=== PATIENT | male | born 1990 | race Caucasian/White ===

== ENCOUNTER 2017-02-24 06:50 | Emergency (ER) | payer SELFPAY ==
[~2017-02-24] VITALS: Ht 167.6 cm; Wt 70.3 kg
[2017-02-24 06:55] VITALS: BP_SYST 130
[2017-02-24] MEDS ORDERED: NACL 0.9% 1,000 ML IV ONE (07:16)
[2017-02-24 07:28] LABS: BASOPHILS % (AUTO) 0.4 % (0.0-2.0); EOSINOPHILS # (AUTO) 0.1 K/uL (0.0-0.4); HEMATOCRIT 42.6 % (36-54); HEMOGLOBIN 14.1 g/dL (14.0-18.0); LYMPHOCYTES # (AUTO) 1.7 K/uL (1.0-5.5); LYMPHOCYTES % (AUTO) 19.6 % (20.5-51.5); MEAN CORPUSCULAR HEMOGLOBIN 28 pg (27-31); MEAN CORPUSCULAR HGB CONC 33 % (32-36); MEAN CORPUSCULAR VOLUME 85 fL (79.0-98.0); MONOCYTES # (AUTO) 0.7 K/uL (0.0-1.0); NEUTROPHILS # (AUTO) 6.1 K/uL (1.8-7.7); PLATELET COUNT (AUTO) 343 K/uL (130-430); RED CELL DISTRIBUTION WIDTH 12.6 % (9.0-15.0); WHITE BLOOD COUNT (AUTO) 8.6 K/uL (4.8-10.8)
[2017-02-24] MEDS ORDERED: ONDANSETRON HCL 4 MG/2 ML VIAL IVP ONE (07:30)
[2017-02-24] MEDS ORDERED: HYDROmorphone 1 MG INJ. 1 MG/ML AMPUL IM ONE (07:30)
[2017-02-24 07:35] LABS: CALCIUM 8.8 mg/dL (8.4-11.0); CREATININE 0.97 mg/dL (0.55-1.30); POTASSIUM 3.5 mmol/L (3.5-5.1)
[2017-02-24 07:38] LABS: INR 0.9 (0.80-1.20); PROTHROMBIN TIME 10.3 SECS (9.5-12.5)
[2017-02-24 07:39] LABS: ALBUMIN 3.8 g/dL (3.4-4.8); TOTAL BILIRUBIN 0.3 mg/dL (0.0-1.0)
[2017-02-24] MEDS ORDERED: DIPHENHYDRAMINE INJ 50 MG/ML VIAL IVP ONE (08:00)
[2017-02-24] MEDS ORDERED: HALOPERIDOL LACTATE 5 MG/ML VIAL IVP ONE (08:00)
[2017-02-24 14:00] VITALS: BP_SYST 146
== END 2017-02-24 14:00 | disposition home or self-care (01) ==
LOC: SED 06:50
DX: K80.20 Calculus of gallbladder without cholecystitis without obstruction (principal)
CPT/HCPCS: 36415; 74176; 76700; 80053; 82150; 83690; 85025; 85610; 85730; 96361; 96374; 96375; 99285; J1170; J1200; J1630; J2405; J7030

== ENCOUNTER 2021-07-09 05:49 | Emergency (ER) | payer MEDICAID ==
[~2021-07-09] VITALS: Ht 165.1 cm; Wt 74.8 kg
[2021-07-09 05:50] VITALS: BP_SYST 111
[2021-07-09] MEDS ORDERED: NACL 0.9% 1,000 ML IV ONE (06:30)
[2021-07-09] MEDS ORDERED: KETOROLAC TROMETHAMINE 30 MG VIAL IVP ONE (06:30)
[2021-07-09 07:13] LABS: BASOPHILS % (AUTO) 0.2 % (0.0-2.0); EOSINOPHILS % (AUTO) 0.1 % (0.0-4.0); HEMATOCRIT 45.4 % (36-54); HEMOGLOBIN 15.3 g/dL (14.0-18.0); LYMPHOCYTES # (AUTO) 0.4 K/uL (1.0-5.5); LYMPHOCYTES % (AUTO) 3.3 % (20.5-51.5); MEAN CORPUSCULAR HEMOGLOBIN 29 pg (27-31); MEAN CORPUSCULAR HGB CONC 34 % (32-36); MEAN CORPUSCULAR VOLUME 85 fL (79.0-98.0); MONOCYTES # (AUTO) 0.7 K/uL (0.0-1.0); NEUTROPHILS # (AUTO) 12.1 K/uL (1.8-7.7); NEUTROPHILS % (AUTO) 91.4 % (40.0-70.0); PLATELET COUNT (AUTO) 279 K/uL (130-430); RED BLOOD CELL COUNT(AUTO) 5.36 MIL/uL (4.2-6.2); RED CELL DISTRIBUTION WIDTH 13.2 % (9.0-15.0); WHITE BLOOD COUNT (AUTO) 13.2 K/uL (4.8-10.8)
[2021-07-09 07:16] LABS: CALCIUM 8.1 mg/dL (8.4-11.0); CREATININE 0.72 mg/dL (0.55-1.30); POTASSIUM 3.2 mmol/L (3.5-5.1)
[2021-07-09 07:22] LABS: ALBUMIN 3.6 g/dL (3.4-4.8); TOTAL BILIRUBIN 0.7 mg/dL (0.0-1.0)
[2021-07-09] MEDS ORDERED: ONDA-8 TL (07:49)
[2021-07-09] MEDS ORDERED: TRAM50TA PO (07:49)
[2021-07-09 08:46] VITALS: BP_SYST 123
== END 2021-07-09 08:43 | disposition home or self-care (01) ==
LOC: SED 05:49
DX: K80.50 Calculus of bile duct without cholangitis or cholecystitis without obstruction (principal); Z79.899 Other long term (current) drug therapy
CPT/HCPCS: 36415; 80053; 83690; 85025; 96361; 96374; 99283; J1885; J7030

== ENCOUNTER 2021-07-22 15:01 | Emergency (ER) | payer MEDICAID ==
[~2021-07-22] VITALS: Ht 165.1 cm; Wt 63.5 kg
[~2021-07-22 15:01] MED LIST: ONDA-8 TL; TRAM50TA PO
[2021-07-22 15:20] VITALS: BP_SYST 134
[2021-07-22] MEDS ORDERED: KETOROLAC TROMETHAMINE 60 MG/2 ML VIAL IM ONE (16:00)
[2021-07-22] MEDS ORDERED: ONDANSETRON 4 MG ODT TAB PO ONE (16:00)
[2021-07-22 16:19] LABS: BASOPHILS # (AUTO) 0.1 K/uL (0.0-0.2); BASOPHILS % (AUTO) 1.2 % (0.0-2.0); EOSINOPHILS # (AUTO) 0.1 K/uL (0.0-0.4); EOSINOPHILS % (AUTO) 0.8 % (0.0-4.0); HEMOGLOBIN 13.9 g/dL (14.0-18.0); LYMPHOCYTES # (AUTO) 1.4 K/uL (1.0-5.5); LYMPHOCYTES % (AUTO) 14.8 % (20.5-51.5); MEAN CORPUSCULAR HEMOGLOBIN 28 pg (27-31); MEAN CORPUSCULAR HGB CONC 33 % (32-36); MEAN CORPUSCULAR VOLUME 85 fL (79.0-98.0); MONOCYTES # (AUTO) 0.6 K/uL (0.0-1.0); MONOCYTES % (AUTO) 6.6 % (1.7-9.3); NEUTROPHILS # (AUTO) 7.3 K/uL (1.8-7.7); NEUTROPHILS % (AUTO) 76.6 % (40.0-70.0); PLATELET COUNT (AUTO) 379 K/uL (130-430); RED BLOOD CELL COUNT(AUTO) 4.94 MIL/uL (4.2-6.2); RED CELL DISTRIBUTION WIDTH 13.5 % (9.0-15.0); WHITE BLOOD COUNT (AUTO) 9.5 K/uL (4.8-10.8)
[2021-07-22 16:32] LABS: CREATININE 0.85 mg/dL (0.55-1.30); POTASSIUM 3.6 mmol/L (3.5-5.1)
[2021-07-22 16:36] LABS: ALBUMIN 3.7 g/dL (3.4-4.8); TOTAL BILIRUBIN 0.4 mg/dL (0.0-1.0)
[2021-07-22 19:13] LABS: BILIRUBIN,URINE NEGATIVE (NEGATIVE); BLOOD, URINE NEGATIVE (NEGATIVE); CLARITY/URINE CLEAR (CLEAR); COLOR,URINE ORANGE (YELLOW); GLUCOSE,URINE NEGATIVE (NEGATIVE); KETONES,URINE NEGATIVE (NEGATIVE); LEUKOCYTE ESTERASE ,URINE NEGATIVE (NEGATIVE); NITRITE, URINE NEGATIVE (NEGATIVE); PH,URINE 6.5 (5.0-8.0); PROTEIN URINE NEGATIVE (NEGATIVE); UROBILINOGEN,URINE 0.2 (0.2-1.0)
[2021-07-22 19:21] LABS: BACTERIA,URINE FEW /HPF (None Seen); MUCUS,URINE 2+ /LPF (None Seen); RBC,URINE NONE SEEN /HPF (0-3); WBC,URINE 0-3 /HPF (0-3)
== END 2021-07-22 19:55 | disposition home or self-care (01) ==
LOC: SED 15:01
DX: R10.9 Unspecified abdominal pain (principal); Z79.899 Other long term (current) drug therapy
CPT/HCPCS: 36415; 76770; 80053; 81000; 83690; 85025; 96372; 99284; J1885; Q0162

== ENCOUNTER 2021-07-26 02:51 | Emergency (ER) | payer MEDICAID ==
[~2021-07-26] VITALS: Ht 172.7 cm; Wt 63.5 kg
[2021-07-26 03:01] VITALS: BP_SYST 124
--- NOTE | 2021-07-26 03:05 | NUR ---
Patient triaged and placed in er hallway. VSS and patient appears in no acute distress at this time. Accompanied by bls, awaiting available bed, and MD notified of need for MSE.
--- NOTE | 2021-07-26 04:00 | NUR ---
Dr Santos went to [facility] to examined the pt.Per Dr Santos pt dont want be examined in the [facility].
[2021-07-26 07:00] VITALS: BP_SYST 122
--- NOTE | 2021-07-26 07:00 | NUR ---
Report given to Ina BLANK
[2021-07-26 07:01] LABS: BASOPHILS # (AUTO) 0.2 K/uL (0.0-0.2); BASOPHILS % (AUTO) 0.9 % (0.0-2.0); EOSINOPHILS # (AUTO) 0.1 K/uL (0.0-0.4); EOSINOPHILS % (AUTO) 0.3 % (0.0-4.0); HEMATOCRIT 41.7 % (36-54); LYMPHOCYTES # (AUTO) 1.3 K/uL (1.0-5.5); MEAN CORPUSCULAR HEMOGLOBIN 29 pg (27-31); MEAN CORPUSCULAR HGB CONC 34 % (32-36); MEAN CORPUSCULAR VOLUME 85 fL (79.0-98.0); MONOCYTES # (AUTO) 0.9 K/uL (0.0-1.0); MONOCYTES % (AUTO) 5.2 % (1.7-9.3); NEUTROPHILS # (AUTO) 14.3 K/uL (1.8-7.7); NEUTROPHILS % (AUTO) 85.6 % (40.0-70.0); PLATELET COUNT (AUTO) 357 K/uL (130-430); RED CELL DISTRIBUTION WIDTH 13.6 % (9.0-15.0); WHITE BLOOD COUNT (AUTO) 16.7 K/uL (4.8-10.8)
[2021-07-26 07:23] LABS: CALCIUM 7.6 mg/dL (8.4-11.0); CREATININE 0.77 mg/dL (0.55-1.30); POTASSIUM 3.8 mmol/L (3.5-5.1)
[2021-07-26 07:29] LABS: ALBUMIN 3.5 g/dL (3.4-4.8); TOTAL BILIRUBIN 0.3 mg/dL (0.0-1.0)
--- NOTE | 2021-07-26 08:21 | NUR ---
PT SLEEPING QUIETLY IN WAITING ROOM SINCE I ARRIVED AT 0700, PT REFUSED TO GIVE A URINE SPECIMEN. PT WAS APPROACHED TO BE DISCHARGED AND GOT AGGRESSIVE WITH ME, SCREAMING AND YELLING. SECURITY IN WAITING ROOM. PT ESCORTED OUT OF HOSPITAL.
== END 2021-07-26 08:23 | disposition home or self-care (01) ==
LOC: SED 02:51
DX: R10.9 Unspecified abdominal pain (principal); Z76.5 Malingerer [conscious simulation]
CPT/HCPCS: 36415; 80053; 85025; 99283

== ENCOUNTER 2021-09-09 05:08 | Inpatient (IN) | payer MEDICAID ==
[~2021-09-09] VITALS: Ht 165.1 cm; Wt 66.4 kg
[2021-09-09 05:14] VITALS: BP_SYST 124
[2021-09-09] MEDS ORDERED: ONDANSETRON HCL 4 MG/2 ML VIAL ONE (05:26)
[2021-09-09] MEDS ORDERED: DIPHENHYDRAMINE INJ 50 MG/ML VIAL IVP ONE (05:30)
[2021-09-09] MEDS ORDERED: NACL 0.9% 1,000 ML IV ONE (05:30)
[2021-09-09] MEDS ORDERED: ONDANSETRON HCL 4 MG/2 ML VIAL IVP ONE (05:30)
[2021-09-09] MEDS ORDERED: HALOPERIDOL LACTATE 5 MG/ML VIAL IM ONE (05:30)
[2021-09-09 06:22] LABS: HEMATOCRIT 54.8 % (36-54); HEMOGLOBIN 18.4 g/dL (14.0-18.0); MEAN CORPUSCULAR HEMOGLOBIN 28 pg (27-31); MEAN CORPUSCULAR HGB CONC 34 % (32-36); MEAN CORPUSCULAR VOLUME 85 fL (79.0-98.0); PLATELET COUNT (AUTO) 402 K/uL (130-430); RED BLOOD CELL COUNT(AUTO) 6.48 MIL/uL (4.2-6.2); RED CELL DISTRIBUTION WIDTH 13.3 % (9.0-15.0); WHITE BLOOD COUNT (AUTO) 25.3 K/uL (4.8-10.8)
[2021-09-09 06:25] LABS: ANION GAP 14 (5-15); CALCIUM 10.2 mg/dL (8.4-11.0); CHLORIDE 100 mmol/L (98-107); CREATININE 1.16 mg/dL (0.55-1.30); GLUCOSE 109 mg/dL (70-99); POTASSIUM 3.1 mmol/L (3.5-5.1); SODIUM SERUM 138 mmol/L (136-145); UREA NITROGEN, BLOOD 16 mg/dL (8-21)
[2021-09-09 06:30] LABS: ALANINE AMINOTRANSFERASE 45 U/L (12-78); ASPARTATE AMINOTRANSFERASE 21 U/L (10-37); TOTAL BILIRUBIN 0.8 mg/dL (0.0-1.0)
[2021-09-09 06:34] LABS: ALCOHOL, BLOOD < 3 mg/dL (<10); GFR AFRICAN AMERICAN 96 mL/min (>90)
[2021-09-09] MEDS ORDERED: POTASSIUM CHLORIDE 20 MEQ TAB.PRT.SR PO ONE (07:15)
[2021-09-09] MEDS ORDERED: NACL 0.9% 2,000 ML IV ONE (07:15)
[2021-09-09 07:21] LABS: BAND % (MANUAL) 10 % (0-6); BASOPHILS % (MANUAL) 0 % (0-2); EOSINOPHILS % (MANUAL) 0 % (0-7); LYMPHOCYTES % (MANUAL) 6 % (20-46); MONOCYTES % (MANUAL) 5 % (0-11)
[2021-09-09] MEDS ORDERED: D5/0.45 NS 1,000 ML IV SCH (09:00)
[2021-09-09] MEDS ORDERED: ONDANSETRON HCL 4 MG/2 ML VIAL IVP PRN (09:00)
[2021-09-09 10:05] VITALS: BP_SYST 101
[2021-09-09 12:00] VITALS: BP_SYST 108
== END 2021-09-09 15:57 | disposition left against medical advice (07) | DRG 720 ==
LOC: SED 05:08 → SMU 08:50
PROVIDERS: ADMIT Family Medicine; ATTEND Family Medicine
DX: A41.9 Sepsis, unspecified organism (principal); D72.825 Bandemia; R11.2 Nausea with vomiting, unspecified; Z20.822 Contact with and (suspected) exposure to COVID-19; F12.20 Cannabis dependence, uncomplicated; Z79.899 Other long term (current) drug therapy; Z87.442 Personal history of urinary calculi
CPT/HCPCS: 36415; 76376; 80053; 83605; 83690; 85007; 85027; 87040; 96361; 96372; 96374; 96375; 99285; G0482; J1200; J1630; J2405

== ENCOUNTER 2021-10-31 05:52 | Emergency (ER) | payer MEDICAID ==
[~2021-10-31] VITALS: Ht 165.1 cm; Wt 63.5 kg
--- NOTE | 2021-10-31 07:28 | NUR ---
Patient to ER bed 6 to gown for evaluation. Side rails up. Report given to SHIVANI BLANK.
[2021-10-31 07:29] VITALS: BP_SYST 130
[2021-10-31 07:36] LABS: BILIRUBIN,URINE NEGATIVE (NEGATIVE); BLOOD, URINE NEGATIVE (NEGATIVE); CLARITY/URINE CLEAR (CLEAR); COLOR,URINE YELLOW (YELLOW); GLUCOSE,URINE NEGATIVE (NEGATIVE); KETONES,URINE NEGATIVE (NEGATIVE); LEUKOCYTE ESTERASE ,URINE NEGATIVE (NEGATIVE); NITRITE, URINE NEGATIVE (NEGATIVE); PROTEIN URINE NEGATIVE (NEGATIVE); UROBILINOGEN,URINE 0.2 (0.2-1.0)
[2021-10-31 07:48] LABS: BARBITURATE, URINE NEGATIVE (NEG <=200); BENZODIAZEPINE, URINE NEGATIVE (NEG <=150); CANNABINOID, URINE POSITIVE (NEG <=50); COCAINE, URINE NEGATIVE (NEG <=150); METHAMPHETAMINES SCREEN,URINE POSITIVE (NEG <=500); OPIATE, URINE NEGATIVE (NEG <=100); PHENCYCLIDINE SCREEN,URINE NEGATIVE (NEG <=25); UR TRICYCLIC ANTIDEPRESSANTS NEGATIVE (NEG <=300); URINE AMPHETAMINE POSITIVE (NEG <=500); URINE METHADONE NEGATIVE (NEG <=200); URINE OXYCODONE SCREEN NEGATIVE (NEG <=100); URINE PROPOXYPHENE SCREEN NEGATIVE (NEG <=300)
--- NOTE | 2021-10-31 07:51 | NUR ---
Pt present to ED with complaint of flank and back pain rated 10/10. Pt report hx of meth use. AOx4 GCS 15. [facility] Pt [facility] bed 6 with side rails raised
[2021-10-31] MEDS ORDERED: MORPHINE 4 MG INJ. 4 MG/ML VIAL IVP ONE (08:00)
[2021-10-31] MEDS ORDERED: KETOROLAC TROMETHAMINE 30 MG VIAL IVP ONE ×2 (08:00)
[2021-10-31] MEDS ORDERED: NACL 0.9% 1,000 ML IV ONE (08:00)
[2021-10-31] MEDS ORDERED: MORPHINE 4 MG INJ. 4 MG/ML VIAL IM ONE (08:00)
[2021-10-31 08:20] LABS: BASOPHILS % (AUTO) 0.7 % (0.0-2.0); EOSINOPHILS % (AUTO) 0.5 % (0.0-4.0); HEMATOCRIT 43.2 % (36-54); HEMOGLOBIN 14.6 g/dL (14.0-18.0); LYMPHOCYTES # (AUTO) 1.6 K/uL (1.0-5.5); LYMPHOCYTES % (AUTO) 20.9 % (20.5-51.5); MEAN CORPUSCULAR HEMOGLOBIN 29 pg (27-31); MEAN CORPUSCULAR HGB CONC 34 % (32-36); MEAN CORPUSCULAR VOLUME 85 fL (79.0-98.0); MONOCYTES # (AUTO) 0.4 K/uL (0.0-1.0); MONOCYTES % (AUTO) 5.8 % (1.7-9.3); NEUTROPHILS # (AUTO) 5.3 K/uL (1.8-7.7); NEUTROPHILS % (AUTO) 72.1 % (40.0-70.0); PLATELET COUNT (AUTO) 323 K/uL (130-430); RED BLOOD CELL COUNT(AUTO) 5.07 MIL/uL (4.2-6.2); WHITE BLOOD COUNT (AUTO) 7.4 K/uL (4.8-10.8)
[2021-10-31 08:44] LABS: CALCIUM 8.5 mg/dL (8.4-11.0); CREATININE 0.95 mg/dL (0.55-1.30)
[2021-10-31 08:59] LABS: ALBUMIN 3.9 g/dL (3.4-4.8); TOTAL BILIRUBIN 0.1 mg/dL (0.0-1.0)
[2021-10-31] MEDS ORDERED: IBUP-1969 PO (10:52)
[2021-10-31] MEDS ORDERED: DOCU-144 PO (10:52)
[2021-10-31 11:12] VITALS: BP_SYST 114
--- NOTE | 2021-10-31 11:13 | NUR ---
Pt states that he would like to be admitted. ED physician informs pt that he does not meet criteria for admission. Pt D/C in no acute distress AOx4 GCS 15 IV D/C. pt told to wait in waiting area for SW consult. Pt unhappy with instructions but compliant
--- NOTE | 2021-10-31 12:47 | NUR ---
BPM ARCHITECT ELISA Nguyen responded to a request from ED to address patient's request to speak to Social Work regarding discharge. ELISA Nguyen consulted with ED ABHAY Ritchie ([facility]) to inquire into patient's needs. He shared patient expressed a desire to be admitted, but was informed by medical staff he did not have medical criteria to be admitted. To address his continued concern, patient was told to wait in ED lobby for social work. ELISA Nguyen called patient's name in lobby and outside of ED, but unable to locate patient at this time. ELISA updated ABHAY Ritchie of unsuccessful attempts to engage patient.
--- NOTE | 2021-10-31 15:00 | NUR ---
[employer] CAMPGROUND ATTENDANT Wendy [facility]. CAMPGROUND ATTENDANT met with patient in [facility], CAMPGROUND ATTENDANT completed introductions, provided business card and patient was open to contact in [facility]. Current need- Patient requested assist with obtaiing PCP and regular clinic. Mental Health- Patient disclosed a history of Depression, denies previous or current SI. He also shares previous stay in [place] as a minor Housing- Patient shared he has been homeless for about 2 months. He was previously renting an apartment with a roommate, but due to undisclosed circumstances he decided "to leave". [place]. He stated he feels safe at this time, and declined housing resources History- Patient has a history of foster care system involvement since 13 years of age, with him emancipating while in [facility] at the age of 18. Both parents are from heroine overdose. 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 Social- Patient has a sister who resides in [place], but he declined assistance with contacting her to provide support. He also shares he has a friend who is "like a mentor" and is providing support with obtaining employment and housing. 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 He expresses feeling as if he is addicted the marijuana and has been unsuccessful in addressing this as "i feel like people don't take that seriously". CAMPGROUND ATTENDANT Wendy utilized empathetic, reflective listening techniques to acknowledge his disclosures of substance use and desire to address this. CAMPGROUND ATTENDANT also acknowledged his disclosures of feeling depressed and "just wanting to be clean and shower so i can go back to work". CAMPGROUND ATTENDANT offered resources to address needs, but he stated he only wanted resources for [facility] list to obtain PCP and declined all other resources. Addendum: 10/31/21 at 1557 by Wendy PÉREZ ELISA Nguyen returned to lobby to provide additional resources to patient, but was unable to locate patient. ELISA made attempts to locate patient in main lobby, ED lobby, and outside of facility.
== END 2021-10-31 11:13 | disposition home or self-care (01) ==
LOC: SED 05:52
DX: K59.00 Constipation, unspecified (principal); R10.32 Left lower quadrant pain; G89.29 Other chronic pain; F15.129 Other stimulant abuse with intoxication, unspecified
CPT/HCPCS: 36415; 74176; 76376; 80053; 80307; 81003; 83605; 85025; 85651; 87040; 96361; 96374; 96375; 99285; J1885; J2270; J7030

== ENCOUNTER 2023-03-20 15:25 | Emergency (ER) | payer MEDICAID ==
[~2023-03-20] VITALS: Ht 165.1 cm; Wt 72.6 kg
[2023-03-20 15:25] VITALS: BP_SYST 144; PULSE 97; RESP 18; TEMP 97.2; O2SAT 96
[~2023-03-20 15:25] MED LIST changes: +DOCU-144 PO; +IBUP-1969 PO; -ONDA-8 TL; -TRAM50TA PO
[2023-03-20 19:41] LABS: BASOPHILS % (AUTO) 0.2 % (0.0-2.0); EOSINOPHILS # (AUTO) 0.1 K/uL (0.0-0.4); EOSINOPHILS % (AUTO) 0.6 % (0.0-4.0); HEMATOCRIT 42.3 % (36-54); HEMOGLOBIN 14.4 g/dL (14.0-18.0); LYMPHOCYTES # (AUTO) 1.7 K/uL (1.0-5.5); LYMPHOCYTES % (AUTO) 19.5 % (20.5-51.5); MEAN CORPUSCULAR HEMOGLOBIN 28 pg (27-31); MEAN CORPUSCULAR HGB CONC 34 % (32-36); MEAN CORPUSCULAR VOLUME 83 fL (79.0-98.0); MONOCYTES # (AUTO) 0.9 K/uL (0.0-1.0); MONOCYTES % (AUTO) 9.8 % (1.7-9.3); NEUTROPHILS # (AUTO) 6.2 K/uL (1.8-7.7); NEUTROPHILS % (AUTO) 69.9 % (40.0-70.0); PLATELET COUNT (AUTO) 388 K/uL (130-430); RED CELL DISTRIBUTION WIDTH 13.2 % (9.0-15.0); WHITE BLOOD COUNT (AUTO) 8.8 K/uL (4.8-10.8)
[2023-03-20 19:46] LABS: ANION GAP 11 (5-15); CALCIUM 9.2 mg/dL (8.4-11.0); CARBON DIOXIDE 24 mmol/L (23-29); CHLORIDE 103 mmol/L (98-107); CREATININE 0.91 mg/dL (0.55-1.30); GFR AFRICAN AMERICAN 125 mL/min (>90); GFR NON AFRICAN-AMERICAN 103 mL/min (>90); GLUCOSE 98 mg/dL (74-106); POTASSIUM 3.2 mmol/L (3.5-5.1); SODIUM SERUM 138 mmol/L (136-145); UREA NITROGEN, BLOOD 10 mg/dL (8-21)
[2023-03-20 19:51] LABS: ALANINE AMINOTRANSFERASE 24 U/L (12-78); ALBUMIN 3.6 g/dL (3.4-4.8); ASPARTATE AMINOTRANSFERASE 19 U/L (10-37); TOTAL BILIRUBIN 0.5 mg/dL (0.0-1.0)
[2023-03-20 19:52] LABS: ALCOHOL, BLOOD < 3 mg/dL (<10)
[2023-03-20 20:29] LABS: BILIRUBIN,URINE 1+ (NEGATIVE); BLOOD, URINE 1+ (NEGATIVE); COLOR,URINE YELLOW (YELLOW); GLUCOSE,URINE NEGATIVE (NEGATIVE); KETONES,URINE 1+ (NEGATIVE); LEUKOCYTE ESTERASE ,URINE NEGATIVE (NEGATIVE); NITRITE, URINE NEGATIVE (NEGATIVE); PROTEIN URINE 2+ (NEGATIVE); UROBILINOGEN,URINE 0.2 (0.2-1.0)
[2023-03-20] MEDS ORDERED: MAGNESIUM OXIDE 400 MG TABLET PO ONE (20:30)
[2023-03-20] MEDS ORDERED: POTASSIUM CHLORIDE 20 MEQ TAB.PRT.SR PO ONE (20:30)
[2023-03-20 20:36] LABS: CLARITY/URINE HAZY (CLEAR)
[2023-03-20 20:43] LABS: BARBITURATE, URINE NEGATIVE (NEG <=200); BENZODIAZEPINE, URINE NEGATIVE (NEG <=150); COCAINE, URINE NEGATIVE (NEG <=150); OPIATE, URINE NEGATIVE (NEG <=100); PHENCYCLIDINE SCREEN,URINE NEGATIVE (NEG <=25); UR TRICYCLIC ANTIDEPRESSANTS NEGATIVE (NEG <=300); URINE AMPHETAMINE NEGATIVE (NEG <=500); URINE METHADONE NEGATIVE (NEG <=200); URINE OXYCODONE SCREEN NEGATIVE (NEG <=100); URINE PROPOXYPHENE SCREEN NEGATIVE (NEG <=300)
[2023-03-20 20:44] LABS: CANNABINOID, URINE POSITIVE (NEG <=50); METHAMPHETAMINES SCREEN,URINE POSITIVE (NEG <=500)
[2023-03-20 20:50] LABS: CALCIUM OXALATE CRYSTALS,UR 30-50 /HPF (None Seen); MUCUS,URINE 2+ /LPF (None Seen)
[2023-03-20 20:51] LABS: BACTERIA,URINE None Seen /HPF (None Seen); WBC,URINE 0-3 /HPF (0-3)
[2023-03-20] MEDS ORDERED: MAGNESIUM OXIDE 400 MG TABLET ONE (20:55)
[2023-03-20] MEDS ORDERED: KETOROLAC TROMETHAMINE 60 MG/2 ML VIAL IM ONE (22:15)
[2023-03-20 22:40] VITALS: BP_SYST 149
[2023-03-20 23:09] VITALS: PULSE 75; RESP 18; TEMP 98; O2SAT 98
== END 2023-03-20 22:40 | disposition home or self-care (01) ==
LOC: SED 15:25
DX: F15.10 Other stimulant abuse, uncomplicated (principal); E87.6 Hypokalemia; F14.10 Cocaine abuse, uncomplicated; Z79.899 Other long term (current) drug therapy
CPT/HCPCS: 99284; 80307; 80053; 82140; 85025; 36415; 93005; 96372; 81001; 81000; 81015; J1885; G0482

== ENCOUNTER 2023-03-26 05:12 | Emergency (ER) | payer MEDICAID ==
[~2023-03-26] VITALS: Ht 170.2 cm; Wt 79.4 kg
[2023-03-26 05:19] VITALS: BP_SYST 137; PULSE 110; RESP 18; TEMP 98.3; O2SAT 99
[2023-03-26 05:57] LABS: BASOPHILS # (AUTO) 0.1 K/uL (0.0-0.2); BASOPHILS % (AUTO) 0.7 % (0.0-2.0); EOSINOPHILS % (AUTO) 0.3 % (0.0-4.0); LYMPHOCYTES % (AUTO) 20.5 % (20.5-51.5); MEAN CORPUSCULAR HEMOGLOBIN 27 pg (27-31); MEAN CORPUSCULAR HGB CONC 33 % (32-36); MEAN CORPUSCULAR VOLUME 84 fL (79.0-98.0); MONOCYTES # (AUTO) 0.5 K/uL (0.0-1.0); MONOCYTES % (AUTO) 5.5 % (1.7-9.3); NEUTROPHILS # (AUTO) 7.1 K/uL (1.8-7.7); PLATELET COUNT (AUTO) 428 K/uL (130-430); RED BLOOD CELL COUNT(AUTO) 5.48 MIL/uL (4.2-6.2); RED CELL DISTRIBUTION WIDTH 13.2 % (9.0-15.0); WHITE BLOOD COUNT (AUTO) 9.7 K/uL (4.8-10.8)
[2023-03-26] MEDS ORDERED: KETOROLAC TROMETHAMINE 30 MG VIAL IM ONE (06:15)
[2023-03-26] MEDS ORDERED: OXYCODONE/ACETAMINOPHEN 5-325 TABLET PO ONE (06:15)
[2023-03-26] MEDS ORDERED: ACETAMINOPHEN 500 MG TABLET PO ONE (06:15)
[2023-03-26] MEDS ORDERED: oxyCODONE HCL 5 MG TABLET PO ONE (06:15)
[2023-03-26 06:22] LABS: CALCIUM 9.3 mg/dL (8.4-11.0); CREATININE 0.96 mg/dL (0.55-1.30); POTASSIUM 3.8 mmol/L (3.5-5.1)
[2023-03-26 06:27] LABS: ALBUMIN 3.8 g/dL (3.4-4.8); TOTAL BILIRUBIN 0.4 mg/dL (0.0-1.0); TOTAL PROTEIN, SERUM 7.2 g/dL (6.4-8.3)
[2023-03-26] MEDS ORDERED: LORazepam 1 MG TABLET PO ONE (06:30)
[2023-03-26 07:02] LABS: BILIRUBIN,URINE NEGATIVE (NEGATIVE); BLOOD, URINE NEGATIVE (NEGATIVE); CLARITY/URINE CLEAR (CLEAR); COLOR,URINE YELLOW (YELLOW); GLUCOSE,URINE NEGATIVE (NEGATIVE); KETONES,URINE TRACE (NEGATIVE); LEUKOCYTE ESTERASE ,URINE NEGATIVE (NEGATIVE); NITRITE, URINE NEGATIVE (NEGATIVE); PROTEIN URINE 1+ (NEGATIVE); UROBILINOGEN,URINE 0.2 (0.2-1.0)
[2023-03-26 09:52] VITALS: BP_SYST 135; PULSE 97; RESP 18; TEMP 97.4; O2SAT 96
== END 2023-03-26 09:40 | disposition home or self-care (01) ==
LOC: SED 05:12
DX: K80.20 Calculus of gallbladder without cholecystitis without obstruction (principal); R33.9 Retention of urine, unspecified; F15.10 Other stimulant abuse, uncomplicated; R10.30 Lower abdominal pain, unspecified; Z79.899 Other long term (current) drug therapy
CPT/HCPCS: 99285; 74176; 80053; 81001; 85025; 36415; 76376; 76870; 96372; 81003; J1885

== ENCOUNTER 2023-03-31 00:22 | Emergency (ER) | payer MEDICAID ==
[~2023-03-31] VITALS: Ht 165.1 cm; Wt 72.6 kg
[2023-03-31 00:25] VITALS: BP_SYST 137; PULSE 61; RESP 16; TEMP 96; O2SAT 97
[2023-03-31] MEDS ORDERED: KETOROLAC TROMETHAMINE 30 MG VIAL IVP ONE (00:30)
[2023-03-31] MEDS ORDERED: NACL 0.9% 1,000 ML IV ONE (00:30)
[2023-03-31 01:28] LABS: BASOPHILS # (AUTO) 0.1 K/uL (0.0-0.2); BASOPHILS % (AUTO) 0.5 % (0.0-2.0); EOSINOPHILS % (AUTO) 0.1 % (0.0-4.0); HEMATOCRIT 45.4 % (36-54); HEMOGLOBIN 15.4 g/dL (14.0-18.0); LYMPHOCYTES # (AUTO) 1.7 K/uL (1.0-5.5); LYMPHOCYTES % (AUTO) 14.9 % (20.5-51.5); MEAN CORPUSCULAR HEMOGLOBIN 28 pg (27-31); MEAN CORPUSCULAR HGB CONC 34 % (32-36); MEAN CORPUSCULAR VOLUME 84 fL (79.0-98.0); MONOCYTES # (AUTO) 0.7 K/uL (0.0-1.0); MONOCYTES % (AUTO) 6.3 % (1.7-9.3); NEUTROPHILS # (AUTO) 8.9 K/uL (1.8-7.7); NEUTROPHILS % (AUTO) 78.2 % (40.0-70.0); PLATELET COUNT (AUTO) 408 K/uL (130-430); RED BLOOD CELL COUNT(AUTO) 5.44 MIL/uL (4.2-6.2); RED CELL DISTRIBUTION WIDTH 13.4 % (9.0-15.0); WHITE BLOOD COUNT (AUTO) 11.4 K/uL (4.8-10.8)
[2023-03-31 01:34] LABS: ANION GAP 10 (5-15); CALCIUM 9.7 mg/dL (8.4-11.0); CARBON DIOXIDE 27 mmol/L (23-29); CHLORIDE 102 mmol/L (98-107); CREATININE 1.19 mg/dL (0.55-1.30); GFR AFRICAN AMERICAN 92 mL/min (>90); GLUCOSE 92 mg/dL (74-106); POTASSIUM 3.8 mmol/L (3.5-5.1); SODIUM SERUM 139 mmol/L (136-145); UREA NITROGEN, BLOOD 12 mg/dL (8-21)
[2023-03-31 01:38] LABS: GFR NON AFRICAN-AMERICAN 76 mL/min (>90)
[2023-03-31 01:41] LABS: ALANINE AMINOTRANSFERASE 20 U/L (12-78); ALBUMIN 4.2 g/dL (3.4-4.8); ASPARTATE AMINOTRANSFERASE 15 U/L (10-37); TOTAL BILIRUBIN 0.6 mg/dL (0.0-1.0); TOTAL PROTEIN, SERUM 7.6 g/dL (6.4-8.3)
[2023-03-31] MEDS ORDERED: KETOROLAC TROMETHAMINE 30 MG VIAL ONE (03:26)
[2023-03-31 04:28] LABS: BILIRUBIN,URINE 1+ (NEGATIVE); BLOOD, URINE NEGATIVE (NEGATIVE); CLARITY/URINE CLEAR (CLEAR); COLOR,URINE YELLOW (YELLOW); GLUCOSE,URINE NEGATIVE (NEGATIVE); KETONES,URINE NEGATIVE (NEGATIVE); LEUKOCYTE ESTERASE ,URINE NEGATIVE (NEGATIVE); NITRITE, URINE NEGATIVE (NEGATIVE); PROTEIN URINE 2+ (NEGATIVE); UROBILINOGEN,URINE 0.2 (0.2-1.0)
[2023-03-31 04:51] LABS: BACTERIA,URINE None Seen /HPF (None Seen); MUCUS,URINE 1+ /LPF (None Seen); RBC,URINE 0-3 /HPF (0-3); WBC,URINE 0-3 /HPF (0-3)
[2023-03-31 05:13] LABS: CANNABINOID, URINE POSITIVE (NEG <=50); METHAMPHETAMINES SCREEN,URINE POSITIVE (NEG <=500); URINE AMPHETAMINE POSITIVE (NEG <=500)
[2023-03-31 05:15] LABS: BARBITURATE, URINE NEGATIVE (NEG <=200); BENZODIAZEPINE, URINE NEGATIVE (NEG <=150); COCAINE, URINE NEGATIVE (NEG <=150); OPIATE, URINE NEGATIVE (NEG <=100); PHENCYCLIDINE SCREEN,URINE NEGATIVE (NEG <=25); UR TRICYCLIC ANTIDEPRESSANTS NEGATIVE (NEG <=300); URINE METHADONE NEGATIVE (NEG <=200); URINE OXYCODONE SCREEN NEGATIVE (NEG <=100); URINE PROPOXYPHENE SCREEN NEGATIVE (NEG <=300)
[2023-03-31 07:26] VITALS: BP_SYST 120; PULSE 61; RESP 16; TEMP 96; O2SAT 97
== END 2023-03-31 07:26 | disposition home or self-care (01) ==
LOC: SED 00:22
DX: K80.20 Calculus of gallbladder without cholecystitis without obstruction (principal); R10.9 Unspecified abdominal pain; F15.10 Other stimulant abuse, uncomplicated; Z79.899 Other long term (current) drug therapy
CPT/HCPCS: 99285; 74176; 96374; 80307; 80053; 85025; 84484; 36415; 93005; 76376; 81000; 81001; 81015; J1885